=== PATIENT | male | born 2000 | race Hispanic/Latino ===

== ENCOUNTER 2024-08-13 16:06 | Emergency (ER) | payer OTHER ==
--- NOTE | 2024-08-13 16:10 | ERPHSYRPT ---
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 Patient removed a intravenous line from a patient. When he was transporting the needle to the sharps container, the catheter removed causing blood fluid to flow into the patient's left eye. Patient immediately flushed out his left eye at the eyewash station. Patient denies pain. Patient denies visual changes. Timing/Duration: today Severity: mild Modifying Factors: Improves With: nothing Associated Symptoms: denies symptoms Allergies/Adverse Reactions: No Known Drug Allergies Allergy (Unverified 08/13/24 16:11) Home Medications: No Reportable Medications [No Reported Medications] 08/13/24 [History] Travel Risk - International Travel Have you traveled outside of the country in past 3 weeks: No - Emerging Infectious Disease Are you exhibiting symptoms associated with any current EIDs: No - Review of Systems Constitutional: No Symptoms Eyes: Other (Patient with exposure to blood left eye) Ears, Nose, & Throat: No Symptoms Respiratory: No Symptoms Cardiac: No Symptoms Abdominal/Gastrointestinal: No Symptoms Genitourinary Symptoms: No Symptoms Musculoskeletal: No Symptoms Skin: No Symptoms Neurological: No Symptoms Psychological: No Symptoms Endocrine: No Symptoms Hematologic/Lymphatic: No Symptoms Immunological/Allergic: No Symptoms All Other Systems: Reviewed and Negative - Past Medical History Pertinent Past Medical History: No - Nursing Vital Signs Nursing Vital Signs: Initial Vital Signs Pulse Rate 66 08/13/24 16:12 Respiratory Rate 20 08/13/24 16:12 Blood Pressure 122/73 08/13/24 16:12 O2 Sat by Pulse Oximetry 98 08/13/24 16:12 Pain Scale Pain Intensity 0 - Physical Exam General Appearance: no apparent distress, alert Eye Exam: PERRL/EOMI, eyes nml inspection, other (No evidence of any damage or irritation to the left eye) Ears, Nose, Throat Exam: normal ENT inspection, moist mucous membranes Neck Exam: normal inspection, non-tender, supple, full range of motion Respiratory Exam: airway intact, No chest tenderness, No respiratory distress Gastrointestinal/Abdomen Exam: No tenderness Rectal Exam: not done Back Exam: normal inspection, normal range of motion, No CVA tenderness, No vertebral tenderness Extremity Exam: normal inspection, normal range of motion, pelvis stable Neurologic Exam: alert, oriented x 3, cooperative, clinical engineering director II-XII nml as tested, normal mood/affect, nml cerebellar function, nml station & gait, sensation nml Skin Exam: normal color, warm, dry Lymphatic Exam: adenopathy SpO2 Interpretation: normal O2 Delivery: Room Air - Course Nursing assessment & vital signs reviewed: Yes Ordered Tests: Active Orders 24 hr Category Date Time Status Wound Care STAT Care 08/13/24 16:25 Active - Progress Progress: unchanged Progress Note: 08/13/24 16:30 My medical decision making and the assignment of low complexity medical screening exam to this patient's medical issue today is based on review of the patient's past medical history, review the patient's medication list, review of the patient's drug allergy list, history present illness and physical findings on examination. The patient is refusing medication. He will allow us to draw all the hepatitis screenings and HIV. He does not want to take the medicine and refuses blood draw for anything else. Differential diagnosis includes but is not limited to left eye blood product exposure, conjunctivitis, potential infectious disease exposure Counseled pt/family regarding: diagnosis, need for follow-up Medical Desision Making - Diagnostic Testing Diagnostic test were ordered, analyzed, and reviewed by me: Yes - Risk of complications Low Risk: Low risk of morbidity from additional dx testing or treatment - Departure Departure Disposition: Home Clinical Impression: Exposure to blood or body fluid Condition: Stable Critical Care Time: No Additional Instructions: Continue to rinse out your exposed eye 3-4 times a day for the next 48 hours. Return to the emergency department if there is any concerns or change in your vision or the appearance of your left eye. Call your primary care provider on 08/13/2024, to follow-up with your pending lab results.
[2024-08-13 16:25] VITALS: BP 122/73; PULSE 66; RESP 20; O2SAT 98
[2024-08-15 12:00] LABS: HBsAg Screen Negative (Negative); HIV Screen 4th Generation wRfx Non Reactive (Non Reactive); Hep C Virus Ab Non Reactive (Non Reactive)
== END 2024-08-13 17:20 | disposition home or self-care (01) ==
LOC: ED 16:06
DX: Z77.21 Contact with and (suspected) exposure to potentially hazardous body fluids (principal)
CPT/HCPCS: 36415; 86317; 87340; 87389; 99283; G0472; 86803